=== PATIENT | female | born 1995 | race Two or more races ===

== ENCOUNTER 2025-10-17 11:21 | Emergency (ER) | payer BC, OTHER ==
[~2025-10-17] VITALS: Ht 157.5 cm; Wt 62.0 kg
[2025-10-17 11:23] VITALS: TEMP 97.8
--- NOTE | 2025-10-17 11:38 | ED.PDOC ---
History of Present Illness HPI Comments 30 y/o F, presents to the ED for CC of facial pain. Patient states, she has been experiencing right-sided facial pain with associated chills sudden onset, last night (10/16/25). Patient reports, upon palpation of her right cheek to have noticed a vein like structure which she endorses pressing on and symptoms exacerbating there after. Patient further endorses, symptoms of discomfort and pain with swallowing. Patient denies change in diet, trauma, injury, fall, or fever. No other symptoms or modifying factors are present at this time. 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 Family History Family History: Unknown Social History Smoker: Non-Smoker Alcohol: Denies ETOH Use Drugs: Denies Drug Use Lives In: Home Constitutional: reports: chills; denies: diaphoresis, fatigue, fever, malaise, sweats, weakness, others EENTM: reports: others (face pain); denies: blurred vision, double vision, ear bleeding, ear discharge, ear drainage, ear pain, ear ringing, eye pain, eye redness, hearing loss, mouth pain, mouth swelling, nasal discharge, nose bleedin g, nose congestion, nose pain, photophobia, tearing, throat pain, throat swelling, voice changes Respiratory: denies: cough, hemoptysis, orthopnea, SOB at rest, shortness of breath, SOB with excertion, stridor, wheezing, others Cardiovascular: denies: chest pain, dizzy spells, diaphoresis, Dyspnea on exertion, edema, irregular heart beat, left arm pain, lightheadedness, palpitations, PND, syncope, others Gastrointestinal: denies: abdomen distended, abdominal pain, blood streaked bowels, constipated, diarrhea, dysphagia, difficulty swallowing, hematemesis, melena, nausea, poor appetite, poor fluid intake, rectal bleeding, rectal pain, vomiting, others Genitourinary: denies: abnormal vagina bleeding, burning, dyspareunia, dysuria, flank pain, frequency, hematuria, incontinence, pain, , vagina discharge, urgency, others Neurological: denies: dizziness, fainting, headache, left sided numbness, left sided weakness, numbness, paresthesia, pre-existing deficit, right sided numbness, right sided weakness, seizure, speech problems, tingling, tremors, weakness, others Musculoskeletal: denies: back pain, gout, joint pain, joint swelling, muscle pain, muscle stiffness, neck pain, others Integumetry: denies: bruises, change in color, change in hair/nails, dryness, laceration, lesions, lumps, rash, wounds, others Allergic/Immunocompromised: denies: Difficulty Healing, Frequent Infections, Hives, Itching, others Hematologic/Lymphatic: denies: anemia, blood clots, easy bleeding, easy bruising, swollen glands, others Endocrine: denies: excessive hunger, excessive sweating, excessive thirst, excessive urination, flushing, intolerance to cold, intolerance to heat, unexplained weight gain, unexplained weight loss, others Psychiatric: denies: anxiety, bipolar disorder, depression, hopeless, panic disorder, schizophrenia, sleepless, suicidal, others All Other Systems: Reviewed and Negative Physical Exam General Appearance: Moderate Distress HEENT: Pharynx Normal, TMs Normal, Other (Swelling to the right mandibular region and right neck) Neck: Full Range of Motion, Non-Tender, Normal, Normal Inspection Respiratory: Chest Non-Tender, Lungs Clear, No Accessory Muscle Use, No Respiratory Distress, Normal Breath Sounds Cardiovascular: No Edema, No JVD, No Murmur, No Gallop, Normal Peripheral Pulses, Regular Rate/Rhythm Breast Exam: Deferred Gastrointestinal: No Organomegaly, Non Tender, No Pulsatile Mass, Normal Bowel Sounds, Soft Genitalia: Deferred Pelvic: Deferred Rectal: Deferred Extremities: No calf tenderness, Normal capillary refill, Normal inspection, Normal range of motion, Non-tender, No pedal edema Musculoskeletal : Apperance: Normal Neurologic: Alert, account general manager II-XII nml as Tested, No Motor Deficits, Normal Affect, Normal Mood, No Sensory Deficits Cerebellar Function: Normal Reflexes: Normal Skin: Dry, Normal Color, Warm Lymphatic: No Adenopathy Was a procedure done? Was a procedure done?: No Differential Dx Considerations may include: Dental caries, dental abscess, mandible dislocation X-Ray, Labs, Meds, VS Vital Signs Date Time Temp Pulse Resp B/P (MAP) Pulse Ox O2 Delivery O2 Flow Rate FiO2 10/17/25 14:00 97 16 113/58 (76) 100 10/17/25 12:17 91 17 99 Room Air* 0 21 21 10/17/25 12:08 93 18 140/86 (104) 100 10/17/25 11:23 97.8 87 18 118/80 100 97.8 Lab Test 10/17/25 12:21 10/17/25 11:47 Range/Units White Blood Count 10.9 H 4.4-10.8 10^3/uL Red Blood Count 5.37 H 4.0-5.20 10^6/uL Hemoglobin 15.2 12.2-16.2 g/dL Hematocrit 45.3 36.0-46.0 % Mean Corpuscular Volume 84.4 80.0-100.0 fL Mean Corpuscular Hemoglobin 28.3 28.0-32.0 pg Mean Corpuscular Hemoglobin Concent 33.6 32.0-36.0 g/dL Red Cell Distribution Width 14.3 11.8-14.3 % Platelet Count 251 140-450 10^3/uL Mean Platelet Volume 9.2 6.9-10.8 fL Neutrophils (%) (Auto) 76.6 37.0-80.0 % Lymphocytes (%) (Auto) 14.3 10.0-50.0 % Monocytes (%) (Auto) 8.2 0.0-12.0 % Eosinophils (%) (Auto) 0.5 0.0-7.0 % Basophils (%) (Auto) 0.4 0.0-2.0 % Neutrophils # (Auto) 8.4 1.6-8.6 10 ^3/uL Lymphocytes # (Auto) 1.6 0.4-5.4 10 ^3/uL Monocytes # (Auto) 0.9 0-1.3 10 ^3/uL Eosinophils # (Auto) 0.1 0-0.8 10 ^3/uL Basophils # (Auto) 0 0-0.2 10 ^3/uL Nucleated Red Blood Cells 0.1 % Sodium Level 140 136-145 mmol/L Potassium Level 3.9 3.5-5.1 mmol/L Chloride Level 102 98-107 mmol/L Carbon Dioxide Level 24 20-31 mmol/L Anion Gap 14 5-15 Blood Urea Nitrogen < 5 L 9-23 mg/dL Creatinine 0.69 0.550-1.02 mg/dL Glomerular Filtration Rate Calc 119 >90 mL/min BUN/Creatinine Ratio 7.2 L 10.0-20.0 Serum Glucose 89 74-106 mg/dL Calcium Level 9.7 8.7-10.4 mg/dL Urine Color Light-yellow Yellow Urine Clarity Clear Clear Urine pH 7.0 5.0-9.0 Urine Specific [place] 1.012 1.001-1.035 Urine Protein Negative Negative Urine Ketones 1+ H Negative Urine Blood Negative Negative /uL Urine Nitrite Negative Negative Urine Bilirubin Negative Negative Urine Urobilinogen Normal Negative mg/dL Urine Leukocyte Esterase 2+ Negative /uL Urine RBC 3 0 - 4 /hpf Urine Microscopic WBC 49 H 0-5 /HPF Urine Squamous Epithelial Cells Few <5 /hpf Urine Bacteria Few H None Seen /hpf Urine Mucus Few None Seen Urine Glucose Normal Normal mg/dL Current Medications Medications (Trade) Dose Ordered Sig/Camille Route Start Time Stop Time Status Last Admin Diphenhydramine HCl (Benadryl Injection) 25 mg ONCE ONCE IV 10/17/25 11:45 10/17/25 11:46 DC 10/17/25 12:16 Famotidine (Pepcid Injection) 20 mg ONCE ONCE IV 10/17/25 11:45 10/17/25 11:46 DC 10/17/25 12:16 Clindamycin Phosphate 50 ml @ 50 mls/hr ONCE ONCE IV 10/17/25 15:15 10/17/25 16:14 10/17/25 15:[address]: Impression: 1. [id number] subcutaneous edema of the right lateral face and right anterolateral neck soft tissues associated with thickening of the right platysma muscle, which is consistent with cellulitis. This extends to the right parapharyngeal space resulting in effacement of the right aspect of the pamela- and hypopharynx/pyriform sinus including the right pyriform sinus and vallecula. Moderate enlargement and diffuse enhancement of the right parotid gland, which is consistent with right parotiditis. Mild enlargement and diffuse enhancement of the right submandibular gland, which likely is reactive in nature. No evidence of a rim-enhancing liquid collection/abscess. 2. Multiple mildly prominent subcentimeter short-axis right cervical neck lymph nodes, which are likely reactive in nature. IV Hep-Lock was established The patient has already been given Solu-Medrol at the urgent care The patient was given Benadryl 25 mg IV push The patient was given Pepcid 20 mg IV push The patient was also started on clindamycin The urine test is positive for UTI The patient's CBC shows an elevated white blood cell count of 10.9 The patient is recommended to be admitted to the hospital. The patient is now stating that she may want to leave AMA We did explain to her that the patient could run into some problems with the obstruction in the airway but she seems to be wanting to leave AMA They will make the final decision Images Reviewed?: Images reviewed and evaluated by me Time of 1ST Reevaluation: 12:00 Reevaluation 1ST: Unchanged Patient Education/Counseling: Diagnosis, Treatment Family Education/Counseling: No Family Present SEPSIS Sepsis Screen Date sepsis recognized/suspect: Oct 17, 2025 Time Sepsis recognized/suspect: 1124 Recent Procedure: No On Antibiotic Therapy: No Respiratory Rate >20: No Heart Rate >90: No Temp<36 C (96.8 F) or >38.3 C: No SBP <90 or MAP <65 mmHG: No New Acute Mental Status Change: No Is the patient on CPAP, BIPAP,: No Physician Orders Heplock Iv (10/17/25 11:35) Neck With Contrast Soft (10/17/25 11:35) Clindamycin 600mg Iv (Cleocin Iv) (10/17/25 15:15) Vital Signs Date Time Temp Pulse Resp B/P (MAP) Pulse Ox O2 Delivery O2 Flow Rate FiO2 10/17/25 14:00 97 16 113/58 (76) 100 10/17/25 12:17 91 17 99 Room Air* 0 21 21 10/17/25 12:08 93 18 140/86 (104) 100 10/17/25 11:23 97.8 87 18 118/80 100 97.8 Laboratory Tests Test 10/17/25 12:21 White Blood Count 10.9 10^3/uL (4.4-10.8) H Medications Medications Dose Ordered Sig/Camille Route Start Time Stop Time Status Last Admin Dose Admin Clindamycin Phosphate 50 ml @ 50 mls/hr ONCE ONCE IV 10/17/25 15:15 10/17/25 16:14 10/17/25 15:57 Diphenhydramine HCl 25 mg ONCE ONCE IV 10/17/25 11:45 10/17/25 11:46 DC 10/17/25 12:16 Famotidine 20 mg ONCE ONCE IV 10/17/25 11:45 10/17/25 11:46 DC 10/17/25 12:16 Departure 1 Departure Time of Disposition: 16:18 Impression: Primary Impression: Facial cellulitis Additional Impression: UTI (urinary tract infection) Qualified Codes: N30.00 - Acute cystitis without hematuria Disposition: HOME / SELF CARE / HOMELESS Condition: Fair Discharged With: Self Critical Care Note Critical Care Time?: No Stability Stability form required: No Heart Score Heart Score: Heart Score Response (Comments) Value History N/A 0 EKG N/A 0 Age N/A 0 Risk Factors N/A 0 Troponin N/A 0 Total 0 I personally scribed for AMIRA WU MD ([email or web address]) on 10/17/25 at 11:38. Electronically submitted by Muna Morales ([email or web address]). I personally scribed for AMIRA WU MD ([email or web address]) on 10/17/25 at 11:48. Electronically submitted by Muna Morales ([email or web address]). I personally scribed for AMIRA WU MD ([email or web address]) on 10/17/25 at 15:22. Electronically submitted by Muna Morales ([email or web address]). AMIRA WU MD Oct 17, 2025 11:38
[2025-10-17] MEDS: FAMOTIDINE (10MG/ML) 2ML VL IV ONE (12:16)
[2025-10-17] MEDS: diphenhydrAMINE HCL 50 MG/1 ML VL IV ONE (12:16)
[2025-10-17 12:17] VITALS: PULSE 91; RESP 17; O2SAT 99
[2025-10-17 12:45] LABS: Urine Protein, UAD Negative (Negative)
[2025-10-17 12:48] LABS: Hematocrit 45.3 % (36.0-46.0); Hemoglobin 15.2 g/dL (12.2-16.2); Mean Corpuscular Hemoglobin 28.3 pg (28.0-32.0); Mean Corpuscular Volume 84.4 fL (80.0-100.0); Nucleated Red Blood Cells % 0.1 %
[2025-10-17 13:00] LABS: Chloride 102 mmol/L (98-107); Potassium 3.9 mmol/L (3.5-5.1); Sodium 140 mmol/L (136-145)
[2025-10-17 13:01] LABS: Anion Gap 14 (5-15); Calcium 9.7 mg/dL (8.7-10.4); Carbon Dioxide 24 mmol/L (20-31)
[2025-10-17 13:06] LABS: Glucose 89 mg/dL (74-106)
[2025-10-17 13:08] LABS: BUN/Creatinine Ratio 7.2 (10.0-20.0); Blood Urea Nitrogen < 5 mg/dL (9-23)
[2025-10-17] MEDS: IOHEXOL 350 MG/ML 100ML IJ ONE (14:07)
--- NOTE | 2025-10-17 15:03 | DVH ---
Clinical History: Pain and swelling. Comparison: None available. Technique: After the intravenous administration of intravenous contrast, multi- slice CT scan of the neck was performed without complication. Radiation Dose Information: CT Dose: CTDI volume is 14.51 mGy. Dose-length product is 377.8 mGy*cm Findings: Right neck superficial and deep soft tissues/Right parotid gland/Pharynx: [id number] subcutaneous edema of the right lateral face and right anterolateral neck soft tissues associated with thickening of the right platysma muscle, which is consistent with cellulitis. This extends to the right pa rapharyngeal space resulting in effacement of the right aspect of the pamela- and hypopharynx including the right pyriform sinus and vallecula. Moderate enlargement and diffuse enhancement of the right parotid gland, which is consistent with right parotiditis. Mild enlargement and diffuse enhancement of t he right submandibular gland, which likely is reactive in nature. No evidence of a rim-enhancing liquid collection/abscess. Unremarkable nasopharynx. No evidence of a rim-enhancing liquid collection to suggest a tonsillar or peritonsillar abscess. No evidence of tonsillitis. Oral cavity: Partially imaged. Streak/beam hardening artifact from patient's dental amalgam partially obscures the tongue. Unremarkable floor of mouth. Larynx/trachea: Unremarkable supraglottic, glottic, and subglottic larynx. Retropharyngeal space: Unremarkable. No evidence of a rim-enhancing liquid collection to suggest a retropharyngeal abscess. Left parotid and submandibular glands: Unremarkable left parotid and submandibular glands. Trimmer Loader spaces: Unremarkable. Carotid spaces: Patent carotid arteries and internal jugular veins. No mass. Thyroid: Unremarkable. Lymph nodes: Multiple mildly prominent subcentimeter short-axis right cervical neck lymph nodes, which are likely reactive in nature. Partially imaged brain: No significant abnormality. Partially imaged paranasal sinuses: Unremarkable. Nasal cavity: Clear. Bilateral mastoid air cells/middle ear cavities: Clear. Superior mediastinum: Unremarkable. Lung apices: No suspicious nodule or mass. Bones: No acute or suspicious osseous abnormality. Straightening of cervical spine curvature without significant degenerative changes. Impression: 1. [id number] subcutaneous edema of the right lateral face and right anterolateral neck soft tissues associated with thickening of the right platysma muscle, which is consistent with cellulitis. This extends to the right parapharyngeal space resulting in effacement of the right aspect of the pamela- and hypopharynx/pyriform sinus including the right pyriform sinus and vallecula. Moderate enlargement and diffuse enhancement of the right parotid gland, which is consistent with right parotiditis. Mild enlargement and diffuse enhancement of the right submandibular gland, which likely is reactive in nature. No evidence of a rim-enhancing liquid collection/abscess. 2. Multiple mildly prominent subcentimeter short-axis right cervical neck lymph nodes, which are likely reactive in nature.
[2025-10-17] MEDS: CLINDAMYCIN 600MG IV 50 ML IV ONE (15:57)
[2025-10-17 16:27] VITALS: BP 124/76; PULSE 98; RESP 16; O2SAT 100
== END 2025-10-17 16:37 | disposition left against medical advice (07) ==
LOC: ER 11:21
DX: L03.211 Cellulitis of face (principal); N39.0 Urinary tract infection, site not specified
CPT/HCPCS: 36415; 70491; 80048; 81001; 85025; 96365; 96375; 99285; J1200; J3490; Q9967; 96372